=== PATIENT | female | born 1960 | race Caucasian/White ===

== ENCOUNTER 2021-02-27 08:38 | Inpatient (IN) ==
[2021-02-27] MEDS ORDERED: SODIUM CHLORIDE 0.9% 1,000 ML IV STA ×2 (09:03→10:32)
[2021-02-27] MEDS ORDERED: ONDANSETRON 4 MG/2 ML VIAL IV STA (09:03)
[2021-02-27 09:41] LABS: Basophils % 0.6 % (0.0-0.8); Eosinophils % 0.4 % (0.00-10.9); Hematocrit 51.5 VOL% (35.7-47.0); Immature Granulocytes % 0.6 %; Immature Granulocytes Absolute 0.03 #; Lymphocytes # 2.5 10*3/uL (1.4-4.0); Lymphocytes % 45.9 % (21.3-54.2); Mean Corpuscular Volume 83.7 FL (87-102); Mean Platelet Volume 12.9 FL (9.6-12.0); Monocytes % 17.2 % (1.7-12.7); Neutrophils % 35.3 % (38.7-73.9); Platelet Count 221 T/CUMM (130-400); Red Blood Count 6.15 MC/CUMM (3.8-5.5); Red Cell Distribution Width 12.6 % (9.3-17.3); White Blood Count 5.4 T/CUMM (4-12)
[2021-02-27 09:49] LABS: Bilirubin,Urine Negative (Negative); Blood, Urine Negative (Negative); Glucose,Urine (UA) >=500 mg/dL (Negative); Hyaline Casts,Urine 7 /LPF (0-3); Ketones,Urine 80 mg/dL (Negative); Mucus,Urine Occasional /LPF (Occasional); Nitrite,Urine Negative (Negative); Protein,Urine 100 MG/DL; RBC,Urine 4 /HPF (0-4); Squamous Epithelial Cell,Urine Few /HPF (0-10); Urine Appearance Slightly Hazy (Clear); Urine Color Amber (Yellow); Urine Specific Gravity 1.031 (1.001-1.035); Urine Urobilinogen < 2.0 EU/DL (0.2-1.0)
[2021-02-27] MEDS ORDERED: HYDROmorphone 2 MG/1 ML VIAL IV STA (09:53)
[2021-02-27 10:01] LABS: Albumin 4.3 G/DL (3.4-5.0); Bilirubin,Total 0.7 MG/DL (0.20-1.00); Calcium 9.5 MG/DL (8.5-10.1); Lymphocytes 45 % (20-55); Osmolality,Calculated 275.2 MOS/KG (273-304); Platelet Estimate Adequate; Potassium 3.8 MMOL/L (3.5-5.1); Segmented Neutrophils 40 % (50-85); Total Cells Counted 100
[2021-02-27 10:02] LABS: Atypical Lymphocytes Few
[2021-02-27] MEDS ORDERED: CALCIUM GLUCONATE 1,000 MG/10 ML VIAL IV ONE (12:03)
[2021-02-27 12:55] LABS: ABG Base Excess -4.1 MMOL/L (-2.5-2.5); ABG Oxygen Saturation 95.6 % (95-100); ABG PCO2 33.3 MM HG (35-48); ABG PH 7.387 (7.35-7.45); ABG PO2 77.7 MM HG (80-95); ABG TCO2 17.2 MMOL/L (23-27)
[2021-02-27] MEDS ORDERED: GLUCAGON 1 MG VIAL IM PRN (12:55)
[2021-02-27] MEDS ORDERED: PROMETHAZINE 25 MG/1 ML VIAL IM PRN (12:55)
[2021-02-27] MEDS ORDERED: ONDANSETRON 4 MG/2 ML VIAL IV PRN (12:55)
[2021-02-27] MEDS ORDERED: ACETAMINOPHEN 325 MG TABLET PO PRN (12:55)
[2021-02-27] MEDS ORDERED: DEXTROSE 50% 25 GM/50 ML VIAL IV PRN (12:55)
[2021-02-27] MEDS: SODIUM CHLORIDE 0.9% 1,000 ML IV SCH ×2 (13:25→23:00)
[2021-02-27] MEDS: ENOXAPARIN 40 MG/0.4 ML SYRINGE SUBCUT SCH (13:25)
[2021-02-27] MEDS: INSULIN REGULAR 100 UNIT/ML SUBCUT SCH ×2 (17:10→21:36)
[2021-02-27] MEDS: ASCORBIC ACID 500 MG TABLET PO SCH (21:36)
[2021-02-28] MEDS: ENOXAPARIN 40 MG/0.4 ML SYRINGE SUBCUT SCH ×2 (04:17→13:27)
[2021-02-28 04:35] LABS: Basophils % 0.3 % (0.0-0.8); Eosinophils % 0.9 % (0.00-10.9); Immature Granulocytes % 0.6 %; Immature Granulocytes Absolute 0.02 #; Lymphocytes # 1.9 10*3/uL (1.4-4.0); Lymphocytes % 58.7 % (21.3-54.2); Mean Corpuscular HGB Conc 33.5 GM/DL (32-36); Monocytes % 14.2 % (1.7-12.7); Neutrophils % 25.3 % (38.7-73.9); Red Cell Distribution Width 12.5 % (9.3-17.3)
[2021-02-28 04:36] LABS: Hemoglobin 13.4 GM/DL (12.0-16.0); Platelet Count 163 T/CUMM (130-400); White Blood Count 3.2 T/CUMM (4-12)
[2021-02-28 05:06] LABS: Atypical Lymphocytes Few; Hypochromasia Slight; Lymphocytes 64 % (20-55); Microcytosis Slight; Platelet Estimate Adequate; Segmented Neutrophils 28 % (50-85); Total Cells Counted 100
[2021-02-28 05:15] LABS: Calcium 7.9 MG/DL (8.5-10.1); Potassium 2.7 MMOL/L (3.5-5.1)
[2021-02-28] MEDS: INSULIN REGULAR 100 UNIT/ML SUBCUT SCH ×2 (08:22→11:23)
[2021-02-28] MEDS ORDERED: DEXAMETHASONE 10 MG/1 ML VIAL IV SCH (09:00)
[2021-02-28] MEDS ORDERED: CHOLECALCIFEROL 1,000 UNIT TABLET PO SCH (09:00)
[2021-02-28] MEDS ORDERED: PANTOPRAZOLE 40 MG VIAL IV SCH (09:00)
[2021-02-28] MEDS ORDERED: REMDESIVIR 200 MG in SODIUM CHLORIDE 0.9% 210 ML IV ONE (09:00)
[2021-02-28] MEDS ORDERED: ZINC GLUCONATE 50 MG TABLET PO SCH (09:00)
[2021-02-28] MEDS: ASCORBIC ACID 500 MG TABLET PO SCH (09:05)
[2021-02-28] MEDS: SODIUM CHLORIDE 0.9% 1,000 ML IV SCH (09:39)
[2021-02-28] MEDS ORDERED: IBUPROFEN 600 MG TABLET PO PRN (10:59)
[2021-02-28] MEDS: POTASSIUM CHLORIDE RIDER 10 MEQ/100 ML PREMIX IV PRN ×2 (11:23→12:17)
[2021-02-28] MEDS ORDERED: ONDANSETRON 4 MG/2 ML VIAL IV PRN (13:30)
[2021-02-28] MEDS ORDERED: methylPREDNISolone SOD SUC 125 MG/2 ML VIAL IV PRN (13:30)
[2021-02-28] MEDS ORDERED: CASIRIVIMAB/IMDEVIMAB 1,200 MG in SODIUM CHLORIDE 0.9% 100 ML IV ONE (13:30)
[2021-02-28] MEDS ORDERED: DEXAMETHASONE 4 MG TABLET PO ONE (13:30)
[2021-02-28] MEDS ORDERED: ACETAMINOPHEN 325 MG TABLET PO PRN (13:30)
[2021-02-28] MEDS ORDERED: SODIUM CHLORIDE 0.9% 1,000 ML IV SCH (13:30)
[2021-02-28] MEDS ORDERED: MECLIZINE 25 MG TABLET PO PRN (13:30)
[2021-02-28] MEDS ORDERED: SODIUM CHLORIDE 0.9% 200 ML IV SCH (13:30)
[2021-02-28] MEDS ORDERED: diphenhydrAMINE 50 MG/1 ML VIAL IV PRN ×2 (13:30)
[2021-02-28] MEDS ORDERED: DEXTROSE 50% 25 GM/50 ML VIAL IV PRN (13:32)
[2021-02-28] MEDS ORDERED: GLUCAGON 1 MG VIAL IM PRN (13:32)
[2021-02-28 16:27] VITALS: BP 114/67
[2021-03-01] MEDS ORDERED: REMDESIVIR 100 MG in SODIUM CHLORIDE 0.9% 100 ML IV SCH (09:00)
== END 2021-02-28 16:25 | disposition home or self-care (01) | DRG 177 ==
LOC: N.ED 08:38 → N.EDINP 12:53
PROVIDERS: ADMIT Internal Medicine; ATTEND Internal Medicine